=== PATIENT | male | born 1990 | race Caucasian/White ===

== ENCOUNTER 2019-09-30 01:32 | Emergency (ER) | payer SELFPAY ==
[2019-09-30] MEDS ORDERED: oxyCODONE ER 10 MG TAB.ER PO ONE (02:02)
--- NOTE | 2019-09-30 02:03 | EDM.PDOC ---
ED HPI GENERAL MEDICAL PROBLEM - General Chief Complaint: Upper Extremity Injury/Pain Stated Complaint: PAIN AND SWELLING IN RIGHT ELBOW Time Seen by Provider: 09/30/19 01:50 - History of Present Illness INITIAL COMMENTS - FREE TEXT/NARRATIVE: The patient is a 29-year-old male presents to the ER for right elbow swelling and pain. He does not recall any trauma, no fevers, no other acute complaints. He does have full range of motion. He tried taking the believe but it hasn't helped. Right Elbow Pain Score (Numeric/FACES): 8 - Related Data Allergies Allergy/AdvReac Type Severity Reaction Status Date / Time No Known Allergies Allergy Verified 09/30/19 01:50 Home Meds: Home Meds . [No Known Home Meds] 09/30/19 [History] Past Medical History - Past Health History Medical/Surgical History: Denies Medical/Surgical History Psychiatric History: Reports: None - Infectious Disease History Infectious Disease History: Reports: None - Past Surgical History HEENT Surgical History: Reports: Oral Surgery Social & Family History - Tobacco Use Smoking Status *Q: Never Smoker - Recreational Drug Use Recreational Drug Use: Yes Drug Use in Last 12 Months: Yes Recreational Drug Type: Reports: Marijuana/Hashish Recreational Drug Use Frequency: Monthly Review of Systems - Review of Systems Review Of Systems: See Below (Positive for right elbow pain, negative for fevers , negative for trauma, all other Positives and pertinent negatives as per HPI. All other pertinent systems were reviewed and are negative) ED EXAM, GENERAL - Physical Exam Exam: See Below Free Text/Narrative:: Constitutional: No acute distress, Non-toxic appearance HEENT.: Normocephalic, PERRL, EOMI, External ears are atraumatic, Oropharynx clear and moist without lesions or masses, nares are patent without epistaxis Neck: Normal range of motion, Trachea Midline, No stridor Respiratory.: No respiratory distress, No tachypnea, Lungs Clear to Auscultation bilaterally without wheezes, rales, or rhonchi Cardiovascular.: Regular rate and Rhythm without murmurs, rubs, or gallops, good peripheral perfusion GI: Abdomen soft and non tender, no masses, no rebound, rigidity, or guarding Genital Urinary: Deferred Musculoskeletal: Good range of motion. All 4 extremities present and atraumatic , no edema, the right elbow has a soft, fluctuant olecranon bursitis without any erythema or induration or warmth, there is no joint effusion and there is full range of motion of the right elbow Back: Full Range of Motion Skin: Warm, Dry, Color is ethnicity appropriate, No acute rash. Lymphatic: No lymphadenopathy noted Neurological: Alert, Awake and oriented x 3, No focal deficits noted appreciate , GCS 15 Psych: Affect, Judgement, mood normal Course - Vital Signs Text/Narrative:: This is a noninfected, benign right olecranon bursitis. I offered to drain it for symptomatic relief but he does not like needles. The patient will get 1 oxycodone extended release tablet in the ER but no prescriptions. We will provide him with clinic follow-up since the patient is from [place] and is here for 21 days for work. Last Recorded V/S: Last Vital Signs Temp 36.4 C 09/30/19 01:47 Pulse 96 09/30/19 01:47 Resp 16 09/30/19 01:47 BP 137/65 09/30/19 01:47 Pulse Ox 94 L 09/30/19 01:47 Departure - Departure Time of Disposition: 02:03 Disposition: Home, Self-Care 01 Clinical Impression: Olecranon bursitis of right elbow - Discharge Information Instructions: Elbow Bursitis, [id number] Referrals: PCP,Not In Area [Primary Care Provider] - Additional Instructions: The following information is given to patients seen in the emergency department who are being discharged to home. This information is to outline your options for follow-up care. We provide all patients seen in our emergency department with a follow-up referral. The need for follow-up, as well as the timing and circumstances, are variable depending upon the specifics of your emergency department visit. If you don't have a primary care physician on staff, we will provide you with a referral. We always advise you to contact your personal physician following an emergency department visit to inform them of the circumstance of the visit and for follow-up with them and/or the need for any referrals to a consulting specialist. The emergency department will also refer you to a specialist when appropriate. This referral assures that you have the opportunity for follow-up care with a specialist. All of these measure are taken in an effort to provide you with optimal care, which includes your follow-up. Under all circumstances we always encourage you to contact your private physician who remains a resource for coordinating your care. When calling for follow-up care, please make the office aware that this follow-up is from your recent emergency room visit. If for any reason you are refused follow-up, please contact the [facility] Emergency Department at and asked to speak to the emergency department charge nurse. Sepsis Event Note - Evaluation Sepsis Screening Result: No Definite Risk - Focused Exam Vital Signs: Vital Signs Temp Pulse Resp BP Pulse Ox 09/30/19 01:47 36.4 C 96 16 137/65 94 L Date Exam was Performed: 09/30/19 Time Exam was Performed: 01:58
== END 2019-09-30 02:16 | disposition home or self-care (01) ==
LOC: MW.ED 01:32
DX: M70.21 Olecranon bursitis, right elbow (principal); Z98.890 Other specified postprocedural states
CPT/HCPCS: 99283; A9270

== ENCOUNTER 2019-10-01 14:44 | Emergency (ER) | payer SELFPAY ==
--- NOTE | 2019-10-01 16:08 | EDM.PDOC ---
ED HPI GENERAL MEDICAL PROBLEM - General Chief Complaint: Upper Extremity Injury/Pain Stated Complaint: ELBOW COMPLATINT Time Seen by Provider: 10/01/19 14:50 Source of Information: Reports: Patient History Limitations: Reports: No Limitations - History of Present Illness INITIAL COMMENTS - FREE TEXT/NARRATIVE: Patient is a 29-year-old male with no significant past medical history presenting with chief complaint of pain and redness to the right elbow. Patient states he first noted it several days ago and it is increasingly become more painful and more red and swollen. Patient states that the pain is worse when he extends his right elbow. Patient reports intermittent subjective fevers and chills. Patient denies nausea and vomiting. Patient denies any trauma to the elbow. Patient denies any recent infection. In addition to that documented in the HPI above, the additional ROS was obtained : Constitutional: Per HPI Eyes: Denies vision changes ENMT: Denies sore throat CV: Denies chest pain Resp: Denies SOB GI: Denies vomiting or diarrhea : Denies painful urination MSK: Denies recent trauma Skin: Per HPI Neuro: Denies new numbness or tingling or weakness Endocrine: Denies unexpected weight loss Heme: Denies bleeding disorders I have reviewed the triage vital signs Const: Well nourished, well developed, appears stated age Eyes: PERRL, no conjunctival injection HENT: NCAT, Neck supple without meningismus CV: RRR, Warm, well-perfused extremities RESP: CTAB, Unlabored respiratory effort GI: soft, non-tender, non-distended, no masses MSK: No gross deformities appreciated Skin: Patient has diffuse erythema from the distal forearm posteriorly to the proximal humeral area. Small joint effusion noted. Patient has mild pain on passive range of motion. Neuro: Alert, urogynaecologist II-XII grossly intact. Sensation and motor function of extremities grossly intact. Psych: Appropriate mood and affect Assessment and plan Patient is a 29-year-old male presenting with erythema of the right upper extremity. Patient's labs were done demonstrative of infection. However renal function was good. Given the extent of the erythema is much more likely to be a cellulitis without a joint infection. Case discussed with orthopedist prison [employer] supervisor Dr. Bolton who stated that based on the history and exam it is extremely unlikely and quite rare to have a joint space infection there. He recommended starting patient on antibiotics for cellulitis but no other further intervention. Patient will be given follow-up in his office to evaluate for a potential complication of an infectious bursitis. Given the patient's vital signs in appearance I do not believe that there is is related to sepsis and primarily a simple cellulitis. Patient started on Keflex in the emergency department and area was demarcated with a skin marker. Patient instructed to follow-up in 48 hours. Given strict return precautions. All questions addressed and answered. Patient agrees with plan. right elbow Pain Score (Numeric/FACES): 8 - Related Data Allergies Allergy/AdvReac Type Severity Reaction Status Date / Time No Known Allergies Allergy Verified 10/01/19 15:38 Home Meds: Home Meds Cephalexin [Keflex] 500 mg PO Q6H 7 Days #28 capsule 10/01/19 [Rx] Past Medical History - Past Health History Medical/Surgical History: Denies Medical/Surgical History Psychiatric History: Reports: None - Infectious Disease History Infectious Disease History: Reports: None - Past Surgical History HEENT Surgical History: Reports: Oral Surgery Social & Family History - Family History Family Medical History: Noncontributory - Tobacco Use Smoking Status *Q: Never Smoker - Recreational Drug Use Recreational Drug Use: No Review of Systems - Review of Systems Review Of Systems: See Below ED EXAM, GENERAL - Physical Exam Exam: See Below Course - Vital Signs Last Recorded V/S: Last Vital Signs Temp 36.3 C 10/01/19 17:17 Pulse 85 10/01/19 17:17 Resp 16 10/01/19 17:17 BP 117/69 10/01/19 17:17 Pulse Ox 98 10/01/19 17:17 - Orders/Labs/Meds Labs: Laboratory Tests 10/01/19 10/01/19 10/01/19 Range/Units 15:58 15:58 15:58 WBC 20.21 H (4.0-11.0) K/uL RBC 4.40 L (4.50-5.90) M/uL Hgb 14.7 (13.0-17.0) g/dL Hct 41.5 (38.0-50.0) % MCV 94.3 (80.0-98.0) fL MCH 33.4 H (27.0-32.0) pg MCHC 35.4 (31.0-37.0) g/dL RDW Std Deviation 42.4 (28.0-62.0) fl RDW Coeff of Radha 12 (11.0-15.0) % Plt Count 288 (150-400) K/uL MPV 9.50 (7.40-12.00) fL Neut % (Auto) 85.2 H (48.0-80.0) % Lymph % (Auto) 8.2 L (16.0-40.0) % Ocean % (Auto) 6.4 (0.0-15.0) % Eos % (Auto) 0.1 (0.0-7.0) % Baso % (Auto) 0.1 (0.0-1.5) % Neut # (Auto) 17.2 H (1.4-5.7) K/uL Lymph # (Auto) 1.7 (0.6-2.4) K/uL Ocean # (Auto) 1.3 H (0.0-0.8) K/uL Eos # (Auto) 0.0 (0.0-0.7) K/uL Baso # (Auto) 0.0 (0.0-0.1) K/uL Nucleated RBC % 0.0 /100WBC Nucleated RBCs # 0 K/uL ESR 25 H (0-14) mm/hr Sodium 138 (136-148) mmol/L Potassium 4.1 (3.5-5.1) mmol/L Chloride 101 (98-107) mmol/L Carbon Dioxide 26.5 (21.0-32.0) mmol/L BUN 13 (7.0-18.0) mg/dL Creatinine 0.9 (0.8-1.3) mg/dL Est Cr Clr Drug Dosing 127.30 mL/min Estimated GFR (MDRD) > 60.0 ml/min Glucose 95 (74-106) mg/dL Calcium 9.3 (8.5-10.1) mg/dL C-Reactive Protein 29.20 H (0.00-0.90) mg/dL Meds: Medications Discontinued Medications Generic Name Dose Route Start Last Admin Trade Name Freq PRN Reason Stop Dose Admin Cephalexin 500 mg 10/01/19 17:03 10/01/19 17:16 Keflex PO 10/01/19 17:04 500 mg ONETIME ONE Administration Departure - Departure Time of Disposition: 16:35 Disposition: Home, Self-Care 01 Clinical Impression: Cellulitis of arm, right - Discharge Information Prescriptions: Cephalexin [Keflex] 500 mg PO Q6H 7 Days #28 capsule Instructions: Cellulitis, Adult Referrals: [facility] [Outside] Gideon Bolton MD [Physician] - PCP,Not In Area [Primary Care Provider] - Forms: ED Department Discharge Sepsis Event Note - Evaluation Sepsis Screening Result: No Definite Risk - Focused Exam Date Exam was Performed: 10/02/19 Time Exam was Performed: 07:12
[2019-10-01 16:23] LABS: BLOOD UREA NITROGEN,BUN 13 mg/dL (7.0-18.0); CARBON DIOXIDE,CO2 26.5 mmol/L (21.0-32.0); CHLORIDE,CL 101 mmol/L (98-107); GLUCOSE RANDOM 95 mg/dL (74-106); POTASSIUM,K 4.1 mmol/L (3.5-5.1); SODIUM,NA 138 mmol/L (136-148)
--- NOTE | 2019-10-01 16:50 | CR ---
Left elbow: 3 views left elbow were obtained. Comparison: No previous elbow study. Soft tissue swelling is identified. No joint effusion is seen. No fracture or other abnormality is appreciated. Impression: 1. Soft tissue swelling. 2. No additional abnormality is appreciated on right elbow study. Diagnostic code #2 This report was dictated in [place] Standard Time
[2019-10-01] MEDS ORDERED: Cephalexin 500 MG Cap PO ONE (17:03)
== END 2019-10-01 17:18 | disposition home or self-care (01) ==
LOC: MW.ED 14:44
DX: L03.113 Cellulitis of right upper limb (principal); Z98.890 Other specified postprocedural states
CPT/HCPCS: 36415; 73080; 80048; 85025; 85652; 86140; 99283; A9270